=== PATIENT | female | born 1940 | race Caucasian/White ===

== ENCOUNTER 2017-07-05 09:55 | Day surgery (SDC) | payer MEDICARE, OTHER ==
[~2017-07-05] VITALS: Ht 149.9 cm; Wt 53.4 kg
[~2017-07-05 09:55] MED LIST: ALBU90OI6; ALBU90OI6 INH; AMLO10; ASPI81CH; Advair Hfa 230-12 GM INH; BENA20 PO; BENZ100A PO; BISA10S PR; BYSTOLIC PO; CHOL10002 PO; CIPR500 PO; CLON.5; CODGUAEL PO; CYAN1000I PO; CYCL10 PO; DOCU100 PO; FEXO180 PO; FLUSAL2505 IH; Flomax0.4 MG PO; HYDACE10; HYDACE10 PO; HYDACE10B PO; Hydrocodone-Ap1 EA20 PO; IBUP600 PO; IBUP800 PO; IPRAOI INH; LEVO750 PO; MECL25 PO; METH5; METO100ER; METO50ER PO; MILN100T PO; MIRT15; MONT10T PO; Micro-K10 MEQ PO; Norco 5-325 Ta1 EACH PO; OMEP20ER PO; OMEPRAZOLE MAGN20 MG PO; OXYACE5T PO; OXYC1TAB11 PO; PARO20; PIRO20; PREG75 PO; RALO60; SERT100 PO; SERT50; TIOT18 IH; VERAMYST; Zofran Odt4 MG PO
[2018-05-18] MEDS ORDERED: Vitamin B Comple1 EA PO (14:02)
[2018-05-18] MEDS ORDERED: Norco 10-325 T1 EACH PO (14:03)
[2018-05-21] MEDS ORDERED: GUAI600T33 PO (12:55)
[2018-05-21] MEDS ORDERED: CEFD300 PO (12:59)
[2018-05-21] MEDS ORDERED: ALBU3IS INH (12:59)
== END 2017-07-05 13:20 | disposition home or self-care (01) ==
LOC: ORSCSDS 09:55
DX: N20.1 Calculus of ureter (principal); I10 Essential (primary) hypertension; I48.0 Paroxysmal atrial fibrillation; G47.33 Obstructive sleep apnea (adult) (pediatric); K21.9 Gastro-esophageal reflux disease without esophagitis; F32.9 Major depressive disorder, single episode, unspecified; Z79.899 Other long term (current) drug therapy
CPT/HCPCS: C1769; C1889; C1894; C2617; J0744; J1100; J1885; J2250; J2405; J3010; J7120

== ENCOUNTER → 2017-08-28 | Outpatient (CLI) | payer MEDICARE, OTHER ==
[~2017-08-28] MED LIST changes: +ALBU3IS INH; +CEFD300 PO; +GUAI600T33 PO; +Norco 10-325 T1 EACH PO; +Vitamin B Comple1 EA PO
[2017-08-31 10:52] LABS: Stool Occult Bld Immuno 1 Negative (NEGATIVE)
== END | disposition home or self-care (01) ==
LOC: LAB EV 21:00
PROVIDERS: Family Medicine
DX: D64.9 Anemia, unspecified (principal); E83.52 Hypercalcemia
CPT/HCPCS: 82274

== ENCOUNTER → 2017-12-24 | Outpatient (CLI) | payer MEDICARE, OTHER ==
[~2017-12-24] MED LIST changes: -ALBU3IS INH; -CEFD300 PO; -GUAI600T33 PO; -Norco 10-325 T1 EACH PO; -Vitamin B Comple1 EA PO
[2017-12-25 14:27] LABS: Calcium, Urine 14.3 mg/dL (2.0-17.5); Calcium, Urine Calculation 71.5 mg/24hrs (42.0-353.0)
== END ==
LOC: LAB EV 09:46
PROVIDERS: Internal Medicine Endocrinology, Diabetes & Metabolism
DX: E21.0 Primary hyperparathyroidism (principal); E55.9 Vitamin D deficiency, unspecified; Z87.442 Personal history of urinary calculi
CPT/HCPCS: 81050; 82340; 82570

== ENCOUNTER 2019-08-13 18:25 | Emergency (ER) | payer MEDICARE, OTHER ==
[~2019-08-13] VITALS: Ht 144.8 cm; Wt 55.3 kg
[~2019-08-13 18:25] MED LIST changes: +ALBU3IS INH; +CEFD300 PO; +GUAI600T33 PO; +Norco 10-325 T1 EACH PO; +Vitamin B Comple1 EA PO
[2019-08-13] MEDS ORDERED: Norco 10-325 T1 EACH PO (18:52)
== END 2019-08-13 20:37 | disposition home or self-care (01) ==
LOC: ER 18:25
DX: M54.5 Low back pain (principal); G89.29 Other chronic pain; M79.7 Fibromyalgia; Z79.899 Other long term (current) drug therapy
CPT/HCPCS: 72100; 96374; 99283-25; A9270; J1170

== ENCOUNTER → 2020-01-01 | Outpatient (CLI) | payer MEDICARE, OTHER ==
[2020-01-01 18:14] LABS: Calcium, Urine 12.5 mg/dL (< 17.5)
[2020-01-01 18:53] LABS: Creatinine Urine 61.4 mg/dL (27.00-270.00)
== END | disposition home or self-care (01) ==
LOC: LAB SHORT 16:11 → LAB 16:11 → LAB FUT 11-19 11:20
PROVIDERS: Internal Medicine
DX: M81.0 Age-related osteoporosis without current pathological fracture (principal)
CPT/HCPCS: 81050; 82340; 82570

== ENCOUNTER → 2020-02-24 | Outpatient (CLI) | payer MEDICARE, OTHER | END | disposition home or self-care (01) | LOC: LAB EV 17:04 → LAB SHORT 17:04 | DX: N39.0 Urinary tract infection, site not specified (principal) | CPT/HCPCS: 87077; 87086; 87186 ==

== ENCOUNTER → 2020-03-22 | Outpatient (CLI) | payer MEDICARE, OTHER | END | disposition home or self-care (01) | LOC: LAB EV 18:22 → LAB SHORT 18:22 | DX: R30.0 Dysuria (principal) | CPT/HCPCS: 87077; 87086; 87186 ==

== ENCOUNTER → 2020-11-12 | Outpatient (CLI) | payer MEDICARE, OTHER ==
[2020-11-13 07:42] LABS: Stool Occult Bld Immuno 1 Negative (NEGATIVE)
== END | disposition home or self-care (01) ==
LOC: LAB SHORT 14:55 → LAB 14:55
PROVIDERS: Family Medicine
DX: D64.9 Anemia, unspecified (principal)
CPT/HCPCS: 82274

== ENCOUNTER → 2020-12-09 | Outpatient (CLI) | payer MEDICARE, OTHER | LOC: LAB SHORT 18:06 → LAB 18:06 | DX: N39.0 Urinary tract infection, site not specified (principal) | CPT/HCPCS: 87077; 87086; 87186 ==

== ENCOUNTER → 2021-05-04 | Outpatient (CLI) | payer MEDICARE, OTHER ==
[~2021-05-04] MED LIST changes: +KETO10 PO
== END ==
LOC: LAB 15:57 → LAB SHORT 15:57
DX: R31.0 Gross hematuria (principal)
CPT/HCPCS: 87086

== ENCOUNTER → 2023-03-30 | Outpatient (CLI) | payer MEDICARE, OTHER | END | disposition home or self-care (01) | LOC: LAB 16:57 → LAB SHORT 16:57 | DX: N39.0 Urinary tract infection, site not specified (principal) | CPT/HCPCS: 87077; 87086; 87186 ==

== ENCOUNTER → 2023-06-11 | Outpatient (CLI) | payer MEDICARE, OTHER ==
[~2023-06-11] MED LIST changes: +ALBU90OI INH; +FERRO-TIME325 MG PO; +MIRT15 PO; +ONDA4ODT MM; +SULTRIDS PO; +[UNRECOGNIZED DRUG - OTHER] PO
== END ==
LOC: LAB SHORT 12:54 → LAB 12:54
DX: N39.0 Urinary tract infection, site not specified (principal)
CPT/HCPCS: 87077; 87086; 87186

== ENCOUNTER 2023-06-12 13:54 | Inpatient (IN) | payer MEDICARE, OTHER ==
[~2023-06-12] VITALS: Ht 157.5 cm; Wt 46.0 kg
[~2023-06-12 13:54] MED LIST changes: -ALBU90OI INH; -FERRO-TIME325 MG PO; -MIRT15 PO; -ONDA4ODT MM; -SULTRIDS PO; -[UNRECOGNIZED DRUG - OTHER] PO
[2023-06-12] MEDS ORDERED: CEFD300 PO (14:27)
[2023-06-12 14:41] VITALS: BP 131/68
[2023-06-12] MEDS ORDERED: FERRO-TIME325 MG PO (14:59)
[2023-06-12] MEDS ORDERED: ONDA4ODT MM (15:00)
--- NOTE | 2023-06-12 15:07 | NUR ---
1430- PT IS A DIRECT ADMIT FROM [facility], DELIVERED TO ROOM 304 VIA WHEELCHAIR, PT APPEARS VERY WEAK AND SLEEPY, ANSWERS QUESTIONS APPROPRIATELY, A/O X3. DAUGHTER ACCOMPANYING PT AND ABLE TO ANSWER HISTORY QUESTIONS. CALLED DR BRADFORD TO NOTIFY PT IS HERE. PT/FAMILY ORIENTED TO ROOM SET UP, CALL LIGHT AND SAFETY.
--- NOTE | 2023-06-12 17:33 | NUR ---
SUMMARY- PT SOMNOLENT, AWAKENS TO VERBAL STIM. ANSWERS QUESTIONS APPROPRIATELY, JUST FEELS WEAK AND TIRED. MEDICATED ONCE WITH NORCO 10MG (1/2 TAB) FOR C/O PAIN IN LOWER BACK 04/03. EFFECTIVE RELEIF AEB PT SLEEPING. STARTED IVF. PT INCONT OF URINE, WILL OBTAIN ORDER FOR ST CATH TO OBTAIN SAMPLE. PT TOLERATING SIPS OF CLEARS, DECLINED DINNER. WILL SAVE FOR LATER. WILL REPORT TO JACOBY MACKENZIE.
[2023-06-12 19:22] VITALS: BP 127/58
[2023-06-12 20:16] LABS: Source, Urine Clean Catch
[2023-06-12 20:21] LABS: Appearance, Urine Cloudy (Clear); Bilirubin, Urine Neg (Neg); Blood, Urine 5+ (Neg); Color, Urine Yellow (P-Yellow); Glucose Qualitative, Urine Neg (Neg); Ketones, Urine 3+ (Neg); Leukocyte Esterase, Urine 3+ (Neg); Nitrite, Urine Neg (Neg); Protein, Urine 3+ (Neg); Urobilinogen, Urine NORM (Normal)
[2023-06-12 20:36] LABS: Amorphous Mod (0-Heavy); Bacteria Many /hpf; Red Blood Cells, Urine 25-50 /hpf (0-2); Squamous Epithelial Cells Not Seen /hpf (Few); White Blood Cells, Urine TNTC /hpf (0-5)
[2023-06-13 04:59] VITALS: BP 141/63
[2023-06-13 05:15] LABS: Hematocrit 27.8 % (33.0-51.0); Hemoglobin 8.8 g/dL (11.5-16.0); Mean Corpuscular HGB 32.7 pg (26.0-34.0); Mean Corpuscular HGB Conc 31.7 g/dL (31.5-36.5); Mean Corpuscular Volume 103 fL (80-100); Mean Platelet Volume 11.2 fL (9.1-12.4); Platelet Count 341 K/mm3 (150-400); RDW Standard Deviation 72.7 fL (35.1-46.3); Red Blood Cell Count 2.69 M/mm3 (3.80-5.20); White Blood Cell Count 11.05 K/mm3 (4.00-11.30)
[2023-06-13 05:39] LABS: Albumin, Blood 2.4 g/dL (3.4-5.0); Albumin/Globulin Ratio 0.6 (0.8-1.8); Bilirubin, Total 0.4 mg/dL (0.1-1.0); Calcium, Blood 9.9 mg/dL (8.5-10.1); Creatinine, Blood 0.64 mg/dL (0.40-1.00); Globulin, Blood 3.8 g/dL (2.2-4.0); Percent Saturation 31.7 % (15.0-50.0); Potassium, Blood 4.1 mmol/L (3.5-5.5); Total Protein, Blood 6.2 g/dL (6.4-8.2)
--- NOTE | 2023-06-13 05:50 | NUR ---
REPORT RECEIVED VERIFIED, PT A/O HAS OVER ALL SICK FEELING AND IS VERY UNCOMFORTABLE. I REPOSITIONED SEVERL TIMES UNTIL PT FELL ASLEEP. PT SLEPT VERY WELL WITH PURWIC IN PLACE. REPOSITIONED SEVERAL TIMES AND AROUND 5AM GAVE SOME EPAIN MEDICATION. PT SEEMS BETTER AND JUST WANTS TO SLEEP. I SPOKE AND DAUGHTER AND GAVE BRIEF UPDATE, FAMILY TO COME LATER
[2023-06-13 06:07] LABS: BAND PERCENT MAN 3 % (0-8); BASOPHILS PERCENT MAN 0 % (0-2); EOSINOPHILS PERCENT MAN 0 % (0-6); LYMPHOCYTES % ATYPICAL MANUAL 2 % (0-0); LYMPHOCYTES ABSOLUTE MAN 1.87 K/mm3 (0.84-5.20); LYMPHOCYTES PERCENT MAN 15 % (21-46); MONOCYTES ABSOLUTE MAN 0.55 K/mm3 (0.16-1.47); MONOCYTES PERCENT MAN 5 % (4-13); MYELOCYTE ABSOLUTE MAN 0.22 K/mm3 (0.00-0.00); MYELOCYTE PERCENT MAN 2 % (0-0); NEUTROPHILS ABSOLUTE MAN 8.39 K/mm3 (1.96-9.15); SEG NEUTROPHILS PERCENT MAN 73 % (41-73); TOTAL CELLS COUNTED 100
[2023-06-13 07:45] VITALS: BP 126/64
[2023-06-13 15:46] VITALS: BP 133/64
--- NOTE | 2023-06-13 17:28 | NUR ---
SHIFT SUMMARY PATIENT RESTING MOST OF THE DAY. AROUSES WHEN STIMULATED AND ABLE TO EXPRESS NEEDS. PATIENT WEAK. EASILY DRIFTING BACK TO SLEEP WHEN NOT STIMULATED. PATIENT COMPLAINING OF CHRONIC BACK AND NECK PAIN. PATIENT MEDICATED WITH NORCO X1. PATIENT HAS POOR APPETITE BUT DRANK ONE ENSURE AND ATE SOME PUDDING. LUNGS DECREASED T/O. PATIENT HAS HACKING COUGH AT TIMES WHEN AWAKE THAT IS INCONSISTANT WITH EATING AND DRINKING. BED BATH GIVEN. IRON INFUSION DONE.
[2023-06-13 19:35] VITALS: BP 141/72
--- NOTE | 2023-06-13 22:16 | NUR ---
PT A&OX3-4 , C/O CHRONIC BACK PAIN"SEVERE" REEPOSISTIONED & MEDICATED PER EMAR, LUNGS ARE DIIMNISHED T/O WITH AUDIBLE WHEEZE W/ EXERTION ON 2LNC PROVIDER ORDERED NEB TX PRN, PT SWALLOW IMPAIRED PILLS CRUSHED IN PUDDING PT STRUGGLED AND CHOKED, THIN LIQUIDS OR APPLESAUCE CONSISTENCY WORKS BEST, PT REPORTS STRUGGLING TO EAT R/T IMPAIRED SWALLOW AND APPETITE. BOWEL SOUNDS ARE HYPOACTIVE, INCONITNENT IN ATTEND W/ PURE WIC IN PLACE. HEAD OF BED ELEVATED CALL [place] WITHIN REACH BED LOWERED. WILL CONTINUE TO MONITOR. PT CALLING OUT "HELP" REPORTS PAIN IN LOWER BACK REPOSITIONED STATES SOME RELIEF.
[2023-06-14 03:00] VITALS: BP 140/65
--- NOTE | 2023-06-14 05:15 | NUR ---
SHIFT SUMMARY NOC PT A/O TO X 1-2. CONFUSED BUT COOPERATIVE WITH CARE. PT SWALLOW REFLEX IS IMPAIRED, PT UNABLE TO TAKE PO RX SAFELY, PT MADE NPO AND HAS INFUSION OF NS @ 75 ML/HR. HOSPITALIST GAVE INSTRUCTIONS TO PASS ALONG TO DAY PROVIDER NEED FOR ST EVALUATION. PT ALSO HAS HAD DRY COUGH AND GUAFESON SYRUP AND ALBUTEROL TREATMENTS ORDERED. PT ON O2 2L/NC SPO2 > 92%. PT HGB 8.8, PT RECEIVING DAILY FERRLECIT IV. PT ON CONTACT ISOLATION FOR ESBL I PT DAUGHTER CALLED FOR UPDATE ON PT, AND TO LET NURSING STAFF KNOW THAT SHE WILL BE IN AROUND 1400 TODAY, WILL PASS TO DAY RN. PT IS CURRENTLY RESTING WITH BED IN LOWEST POSITION, AND CALL LIGHT WITHIN REACH.
[2023-06-14 07:32] VITALS: BP 154/68
[2023-06-14 15:08] VITALS: BP 140/68
[2023-06-14 17:36] LABS: BASOPHILS ABSOLUTE AUTO 0.03 K/mm3 (0.00-0.23); BASOPHILS PERCENT AUTO 0 % (0-2); EOSINOPHILS ABSOLUTE AUTO 0.02 K/mm3 (0.00-0.68); EOSINOPHILS PERCENT AUTO 0 % (0-6); Hematocrit 31.2 % (33.0-51.0); Hemoglobin 10.3 g/dL (11.5-16.0); IMMATURE GRAN ABSOLUTE AUTO 0.11 K/mm3 (0.00-0.10); IMMATURE GRAN PERCENT AUTO 1 % (0-1); LYMPHOCYTES ABSOLUTE AUTO 1.31 K/mm3 (0.84-5.20); LYMPHOCYTES PERCENT AUTO 12 % (21-46); MONOCYTES ABSOLUTE AUTO 0.62 K/mm3 (0.16-1.47); MONOCYTES PERCENT AUTO 6 % (4-13); Mean Corpuscular HGB 32.6 pg (26.0-34.0); Mean Corpuscular Volume 99 fL (80-100); Mean Platelet Volume 10.5 fL (9.1-12.4); NEUTROPHILS ABSOLUTE AUTO 9.13 K/mm3 (1.96-9.15); NEUTROPHILS PERCENT AUTO 81 % (41-73); NRBC ABSOLUTE 0.05 K/mm3 (0.00-0.02); NRBC Auto 0.4 /100 WBC (0.0-0.2); Platelet Count 366 K/mm3 (150-400); RDW Coefficient Variation 18.2 % (11.7-14.2); RDW Standard Deviation 66.3 fL (35.1-46.3); Red Blood Cell Count 3.16 M/mm3 (3.80-5.20); White Blood Cell Count 11.22 K/mm3 (4.00-11.30)
--- NOTE | 2023-06-14 18:40 | NUR ---
SHIFT SUMMARY PATIENT LETHARGIC AND RESTING MOST OF SHIFT. PATIENT AROUSES WHEN STIMULATED. PATIENT CONTINUES TO HAVE CHRONIC PAIN. MEDICATED WITH PAIN MEDS WHEN PATIENT MORE AWAKE. PATIENT TOLERATED MECHANICAL SOFT DIET WITH ASSISTANCE AND SUPERVISION WITH EATING AND DRINKING. FAMILY IN AND OUT. FAMILY WILLING TO ASSIST WITH FEEDINGS TO BE SURE PATIENT EATS SAFELY.
[2023-06-14 19:15] VITALS: BP 132/91
[2023-06-14 20:16] LABS: Albumin, Blood 2.3 g/dL (3.4-5.0); Albumin/Globulin Ratio 0.5 (0.8-1.8); Bilirubin, Total 0.5 mg/dL (0.1-1.0); Bun/Creatinine Ratio 19.5 (12.0-20.0); Calcium, Blood 9.2 mg/dL (8.5-10.1); Creatinine, Blood 0.56 mg/dL (0.40-1.00); Globulin, Blood 4.3 g/dL (2.2-4.0); Potassium, Blood 3.6 mmol/L (3.5-5.5); Total Protein, Blood 6.6 g/dL (6.4-8.2)
[2023-06-15 03:41] VITALS: BP 147/65
--- NOTE | 2023-06-15 05:12 | NUR ---
SHIFT SUMMARY NOC PT A/O X 2. CONFUSED AT TIMES. EXTREMELY LETHARGIC AFTER RECEIVNG NOROC FOR PAIN, BEDTIME RX HELD DUE TO HIGH ASPIRATION RISK. PT NOW TAKING MERREM/VANCOMYCIN FOR UTI/PNA. NEW ORDER FOR LR @ 150 ML/HR INFUSING. PT ON O2 2L/NC. HAS PUREWICK IN PLACE. PT HAS SLEPT MAJORITY OF SHIFT. PT ATTEMPTED BM ON BEDPAN, BUT ONLY URINE PRODUCED. PT DAUGHTER TRINI IS POA AND WANTS TO BE NOTIFIED OF ANY ACUTE CHANGES IN PT CONDITION (NUMBER ON WHITE BOARD). PT IS CURRENTLY RESTING WITH BED IN LOWEST POSITION, AND CALL LIGHT WITHIN REACH.
[2023-06-15 07:38] VITALS: BP 146/76
[2023-06-15 15:16] VITALS: BP 131/75
[2023-06-15 17:39] LABS: BASOPHILS ABSOLUTE AUTO 0.04 K/mm3 (0.00-0.23); BASOPHILS PERCENT AUTO 0 % (0-2); EOSINOPHILS ABSOLUTE AUTO 0.05 K/mm3 (0.00-0.68); EOSINOPHILS PERCENT AUTO 0 % (0-6); Hematocrit 33.9 % (33.0-51.0); IMMATURE GRAN ABSOLUTE AUTO 0.13 K/mm3 (0.00-0.10); IMMATURE GRAN PERCENT AUTO 1 % (0-1); LYMPHOCYTES ABSOLUTE AUTO 2.83 K/mm3 (0.84-5.20); LYMPHOCYTES PERCENT AUTO 18 % (21-46); MONOCYTES ABSOLUTE AUTO 0.86 K/mm3 (0.16-1.47); MONOCYTES PERCENT AUTO 6 % (4-13); Mean Corpuscular HGB 32.6 pg (26.0-34.0); Mean Corpuscular HGB Conc 32.4 g/dL (31.5-36.5); Mean Corpuscular Volume 101 fL (80-100); Mean Platelet Volume 9.9 fL (9.1-12.4); NEUTROPHILS ABSOLUTE AUTO 11.83 K/mm3 (1.96-9.15); NEUTROPHILS PERCENT AUTO 75 % (41-73); NRBC ABSOLUTE 0.05 K/mm3 (0.00-0.02); NRBC Auto 0.3 /100 WBC (0.0-0.2); Platelet Count 384 K/mm3 (150-400); RDW Coefficient Variation 18.6 % (11.7-14.2); RDW Standard Deviation 68.5 fL (35.1-46.3); Red Blood Cell Count 3.37 M/mm3 (3.80-5.20); White Blood Cell Count 15.74 K/mm3 (4.00-11.30)
[2023-06-15 18:02] LABS: Albumin, Blood 2.5 g/dL (3.4-5.0); Albumin/Globulin Ratio 0.5 (0.8-1.8); Bilirubin, Total 0.6 mg/dL (0.1-1.0); Bun/Creatinine Ratio 19.1 (12.0-20.0); Calcium, Blood 9.7 mg/dL (8.5-10.1); Creatinine, Blood 0.58 mg/dL (0.40-1.00); Globulin, Blood 4.6 g/dL (2.2-4.0); Total Protein, Blood 7.1 g/dL (6.4-8.2)
--- NOTE | 2023-06-15 18:30 | NUR ---
SHIFT SUMMARY PATIENT RESTING MOST OF THE DAY. AROUSES EASILY AND INTERACTIVE ESPECIALLY WHEN FAMILY PRESENT. PATIENT HAS CHRONIC BACK PAIN AND TAKES NARCOTICS REGULARLY AT HOME. FAMILY IN TO HELP PATIENT WITH EATING MEALS EACH MEAL TODAY. IF PATIENT NOT INTERESTED IN EATING HER MEAL, PATIENT WOULD DRINK AN ENSURE. PATIENT MEDICATED X2. PATIENT UP TO CHAIR WITH MINIMAL ASSIST TODAY. PATIETN AMBULATED TO BR X1 WITH WALKER AND STAND BY ASSIST ONCE UP.
[2023-06-15 20:19] VITALS: BP 111/58
--- NOTE | 2023-06-15 21:25 | NUR ---
PT REPOSITIONED IN BED AFTER TRYING TO HAVE A BM ON BSC. NO BM. PT IS A 1-2PA. PT IS RESTIING COMFORTABLY ON RIGHT SIDE. PILLOW BEHIND BACK AND BETWEEN LEGS. HEATING PAD AGAINST BACK. NO OTHER NEEDS. CALL LT IN REACH.
--- NOTE | 2023-06-16 04:00 | NUR ---
SHIFT SUMMARY: PT RESTED WELL T/O SHIFT. REPOSITIONED PT FOR COMFORT. PT WAS ABLE TO MOVE SELF IN BED INDEPENDENTLY. ON 2L VIA NC. PT UP TO THE BSC WITH 2PA. NO BM. TOOK MEDS WELL WITH APPLESAUCE WITHOUT COUGHING OR CHOKING. HEATING PAD FOR CHRONIC BACK PAIN. PURWICK IN PLACE, YELLOW URINE. LR INFUSING AT 150 MLS/HR. NO ACUTE CHANGES. WILL CONTINUE TO PROVIDE CARE T/O SHIFT UNTIL ONCOMING NURSE.
[2023-06-16 07:10] LABS: BASOPHILS ABSOLUTE AUTO 0.04 K/mm3 (0.00-0.23); BASOPHILS PERCENT AUTO 0 % (0-2); EOSINOPHILS ABSOLUTE AUTO 0.09 K/mm3 (0.00-0.68); EOSINOPHILS PERCENT AUTO 1 % (0-6); Hematocrit 31.7 % (33.0-51.0); Hemoglobin 10.3 g/dL (11.5-16.0); IMMATURE GRAN ABSOLUTE AUTO 0.09 K/mm3 (0.00-0.10); IMMATURE GRAN PERCENT AUTO 1 % (0-1); LYMPHOCYTES ABSOLUTE AUTO 1.81 K/mm3 (0.84-5.20); LYMPHOCYTES PERCENT AUTO 18 % (21-46); MONOCYTES ABSOLUTE AUTO 0.55 K/mm3 (0.16-1.47); MONOCYTES PERCENT AUTO 5 % (4-13); Mean Corpuscular HGB 32.8 pg (26.0-34.0); Mean Corpuscular HGB Conc 32.5 g/dL (31.5-36.5); Mean Corpuscular Volume 101 fL (80-100); Mean Platelet Volume 10.3 fL (9.1-12.4); NEUTROPHILS ABSOLUTE AUTO 7.73 K/mm3 (1.96-9.15); NEUTROPHILS PERCENT AUTO 75 % (41-73); NRBC ABSOLUTE 0.02 K/mm3 (0.00-0.02); NRBC Auto 0.2 /100 WBC (0.0-0.2); Platelet Count 303 K/mm3 (150-400); RDW Coefficient Variation 18.5 % (11.7-14.2); RDW Standard Deviation 69.1 fL (35.1-46.3); Red Blood Cell Count 3.14 M/mm3 (3.80-5.20); White Blood Cell Count 10.31 K/mm3 (4.00-11.30)
[2023-06-16 07:24] LABS: Albumin, Blood 2.4 g/dL (3.4-5.0); Albumin/Globulin Ratio 0.6 (0.8-1.8); Bilirubin, Total 0.4 mg/dL (0.1-1.0); Bun/Creatinine Ratio 15.3 (12.0-20.0); Calcium, Blood 9.8 mg/dL (8.5-10.1); Creatinine, Blood 0.59 mg/dL (0.40-1.00); Globulin, Blood 4.3 g/dL (2.2-4.0); Total Protein, Blood 6.7 g/dL (6.4-8.2)
[2023-06-16 07:31] VITALS: BP 126/64
[2023-06-16 16:23] VITALS: BP 121/66
[2023-06-16 17:05] LABS: BASOPHILS ABSOLUTE AUTO 0.03 K/mm3 (0.00-0.23); BASOPHILS PERCENT AUTO 0 % (0-2); EOSINOPHILS ABSOLUTE AUTO 0.05 K/mm3 (0.00-0.68); EOSINOPHILS PERCENT AUTO 1 % (0-6); Hematocrit 30.7 % (33.0-51.0); Hemoglobin 9.9 g/dL (11.5-16.0); IMMATURE GRAN ABSOLUTE AUTO 0.07 K/mm3 (0.00-0.10); IMMATURE GRAN PERCENT AUTO 1 % (0-1); LYMPHOCYTES ABSOLUTE AUTO 1.81 K/mm3 (0.84-5.20); LYMPHOCYTES PERCENT AUTO 17 % (21-46); MONOCYTES ABSOLUTE AUTO 0.58 K/mm3 (0.16-1.47); MONOCYTES PERCENT AUTO 6 % (4-13); Mean Corpuscular HGB 32.4 pg (26.0-34.0); Mean Corpuscular HGB Conc 32.2 g/dL (31.5-36.5); Mean Corpuscular Volume 100 fL (80-100); Mean Platelet Volume 10.5 fL (9.1-12.4); NEUTROPHILS ABSOLUTE AUTO 8.07 K/mm3 (1.96-9.15); NEUTROPHILS PERCENT AUTO 76 % (41-73); Platelet Count 283 K/mm3 (150-400); RDW Coefficient Variation 18.7 % (11.7-14.2); RDW Standard Deviation 70.1 fL (35.1-46.3); Red Blood Cell Count 3.06 M/mm3 (3.80-5.20); White Blood Cell Count 10.61 K/mm3 (4.00-11.30)
[2023-06-16 17:18] LABS: Albumin, Blood 2.4 g/dL (3.4-5.0); Albumin/Globulin Ratio 0.6 (0.8-1.8); Bilirubin, Total 0.4 mg/dL (0.1-1.0); Bun/Creatinine Ratio 14.2 (12.0-20.0); Calcium, Blood 9.8 mg/dL (8.5-10.1); Creatinine, Blood 0.64 mg/dL (0.40-1.00); Globulin, Blood 4.1 g/dL (2.2-4.0); Potassium, Blood 4.4 mmol/L (3.5-5.5); Total Protein, Blood 6.5 g/dL (6.4-8.2)
[2023-06-16 19:55] VITALS: BP 121/67
[2023-06-16 20:46] VITALS: BP 124/71
[2023-06-17 04:59] VITALS: BP 114/59
[2023-06-17 06:04] LABS: BASOPHILS ABSOLUTE AUTO 0.04 K/mm3 (0.00-0.23); BASOPHILS PERCENT AUTO 1 % (0-2); EOSINOPHILS ABSOLUTE AUTO 0.13 K/mm3 (0.00-0.68); EOSINOPHILS PERCENT AUTO 2 % (0-6); Hematocrit 25.8 % (33.0-51.0); Hemoglobin 8.5 g/dL (11.5-16.0); IMMATURE GRAN ABSOLUTE AUTO 0.08 K/mm3 (0.00-0.10); IMMATURE GRAN PERCENT AUTO 1 % (0-1); LYMPHOCYTES ABSOLUTE AUTO 2.49 K/mm3 (0.84-5.20); LYMPHOCYTES PERCENT AUTO 29 % (21-46); MONOCYTES ABSOLUTE AUTO 0.58 K/mm3 (0.16-1.47); MONOCYTES PERCENT AUTO 7 % (4-13); Mean Corpuscular HGB 32.9 pg (26.0-34.0); Mean Corpuscular HGB Conc 32.9 g/dL (31.5-36.5); Mean Corpuscular Volume 100 fL (80-100); Mean Platelet Volume 10.2 fL (9.1-12.4); NEUTROPHILS ABSOLUTE AUTO 5.16 K/mm3 (1.96-9.15); NEUTROPHILS PERCENT AUTO 61 % (41-73); Platelet Count 312 K/mm3 (150-400); RDW Coefficient Variation 18.9 % (11.7-14.2); RDW Standard Deviation 68.5 fL (35.1-46.3); Red Blood Cell Count 2.58 M/mm3 (3.80-5.20); White Blood Cell Count 8.48 K/mm3 (4.00-11.30)
[2023-06-17 06:27] LABS: Albumin, Blood 2.1 g/dL (3.4-5.0); Albumin/Globulin Ratio 0.6 (0.8-1.8); Bilirubin, Total 0.5 mg/dL (0.1-1.0); Bun/Creatinine Ratio 11.9 (12.0-20.0); Calcium, Blood 9.4 mg/dL (8.5-10.1); Creatinine, Blood 0.76 mg/dL (0.40-1.00); Globulin, Blood 3.8 g/dL (2.2-4.0); Total Protein, Blood 5.9 g/dL (6.4-8.2)
--- NOTE | 2023-06-17 06:44 | NUR ---
SHIFT SUMMARY NOC PT A/O X 3. PLEASANT AND COOPERATIVE WITH CARE. PT HR HAS BEEN IN 110'S AND RR 22. HOSPITALIST NOTIFIED OF POSSIBLE SEPSIS REOCCURANCE, NO ORDERS GIVEN, AWAITING AM VSS AND LABS. PT ON 2.5L/NC SPO2 DID DROP TO 88-89% FOR A MINUTE AND O2 TITRATED UP 0.5LPM. PUREWICK IN PLACE. PT CHRONIC BACK PAIN BEING MANAGED PER EMAR. PT IS CURRENTLY RESTING WITH BED IN LOWEST POSITION, AND CALL LIGHT WITHIN REACH.
[2023-06-17 08:01] VITALS: BP 134/61
[2023-06-17] MEDS ORDERED: ALBU90OI INH (12:44)
[2023-06-17] MEDS ORDERED: [UNRECOGNIZED DRUG - OTHER] PO (12:54)
[2023-06-17] MEDS ORDERED: SULTRIDS PO (12:56)
[2023-06-17] MEDS ORDERED: MIRT15 PO (12:56)
--- NOTE | 2023-06-17 13:26 | NUR ---
REPORT TO [facility] ATTEMPTED TO CALL REPORT TO [facility]. [id number], 1300, [id number],[id number]. ALL ATTEMPTS WERE MET WITH A BUST SIGNAL. NO OPPURTUNITY TO LEAVE A MESSAGE. CARE ONGOING.
--- NOTE | 2023-06-17 14:07 | NUR ---
DISCHARGE [facility] UNABLE TO REACH STAFF AT [facility]. PT TRANSPORTED VIA [facility] TO [facility] RM 24 BED 2. IV REMOVED PRESSURE DRESSING APPLIED X2. ATTENDS ON. CARE ON GOING.
== END 2023-06-17 13:59 | DRG 871 ==
LOC: MEDS 13:54
PROVIDERS: Family Medicine; Internal Medicine; ADMIT Internal Medicine
PROC: 5A09357 Assistance with Respiratory Ventilation, Less than 24 Consecutive Hours, Continuous Positive Airway Pressure (ICD-10-PCS; principal; 2023-06-12)
PROC: 3E03329 Introduction of Other Anti-infective into Peripheral Vein, Percutaneous Approach (ICD-10-PCS; 2023-06-12)
DX: A41.51 Sepsis due to Escherichia coli [E. coli] (principal); G93.41 Metabolic encephalopathy; N39.0 Urinary tract infection, site not specified; J98.11 Atelectasis; R54 Age-related physical debility; H81.10 Benign paroxysmal vertigo, unspecified ear; M81.0 Age-related osteoporosis without current pathological fracture; E78.2 Mixed hyperlipidemia; D50.0 Iron deficiency anemia secondary to blood loss (chronic); M40.299 Other kyphosis, site unspecified; J44.9 Chronic obstructive pulmonary disease, unspecified; K21.9 Gastro-esophageal reflux disease without esophagitis; G47.33 Obstructive sleep apnea (adult) (pediatric); M51.36 Other intervertebral disc degeneration, lumbar region; F32.A Depression, unspecified; I48.91 Unspecified atrial fibrillation; I10 Essential (primary) hypertension; F41.1 Generalized anxiety disorder; D75.9 Disease of blood and blood-forming organs, unspecified; G89.4 Chronic pain syndrome; Z87.81 Personal history of (healed) traumatic fracture; Z98.42 Cataract extraction status, left eye; Z98.41 Cataract extraction status, right eye; Z90.89 Acquired absence of other organs; Z98.890 Other specified postprocedural states; Z88.8 Allergy status to other drugs, medicaments and biological substances; Z79.891 Long term (current) use of opiate analgesic; Z79.899 Other long term (current) drug therapy
CPT/HCPCS: 36415; 71045; 80053; 81001; 82607; 82728; 82746; 82947; 83540; 83550; 83605; 83880; 84484; 85025; 87040; 87077; 87086; 87186; 94640; 94664; 94760; 94762; 97110; 97161; 97167; 97530; A9270; J0696; J1650; J2185; J2916; J3370; J7030; J7050; J7120

== ENCOUNTER → 2023-06-12 | Outpatient (CLI) | payer MEDICARE, OTHER ==
[2023-06-12 10:00] LABS: BASOPHILS ABSOLUTE AUTO 0.03 K/mm3 (0.00-0.23); BASOPHILS PERCENT AUTO 0 % (0-2); EOSINOPHILS ABSOLUTE AUTO 0.02 K/mm3 (0.00-0.68); EOSINOPHILS PERCENT AUTO 0 % (0-6); Hematocrit 29.8 % (33.0-51.0); Hemoglobin 9.6 g/dL (11.5-16.0); Mean Corpuscular HGB 33.2 pg (26.0-34.0); Mean Corpuscular HGB Conc 32.2 g/dL (31.5-36.5); Mean Corpuscular Volume 103 fL (80-100); Mean Platelet Volume 10.3 fL (9.1-12.4); Platelet Count 410 K/mm3 (150-400); RDW Coefficient Variation 18.5 % (11.7-14.2); RDW Standard Deviation 69.5 fL (35.1-46.3); Red Blood Cell Count 2.89 M/mm3 (3.80-5.20); White Blood Cell Count 14.61 K/mm3 (4.00-11.30)
[2023-06-12 10:13] LABS: Albumin, Blood 2.6 g/dL (3.4-5.0); Albumin/Globulin Ratio 0.7 (0.8-1.8); Bilirubin, Total 0.7 mg/dL (0.1-1.0); Calcium, Blood 10.9 mg/dL (8.5-10.1); Creatinine, Blood 0.96 mg/dL (0.40-1.00); Potassium, Blood 3.9 mmol/L (3.5-5.5); Total Protein, Blood 6.6 g/dL (6.4-8.2)
[2023-06-12 10:17] LABS: IMMATURE GRAN ABSOLUTE AUTO 0.12 K/mm3 (0.00-0.10); IMMATURE GRAN PERCENT AUTO 1 % (0-1); LYMPHOCYTES ABSOLUTE AUTO 1.45 K/mm3 (0.84-5.20); LYMPHOCYTES PERCENT AUTO 10 % (21-46); MONOCYTES ABSOLUTE AUTO 0.65 K/mm3 (0.16-1.47); MONOCYTES PERCENT AUTO 4 % (4-13); NEUTROPHILS ABSOLUTE AUTO 12.34 K/mm3 (1.96-9.15); NEUTROPHILS PERCENT AUTO 85 % (41-73)
== END | disposition home or self-care (01) ==
LOC: LAB SHORT 09:56 → LAB 09:56
PROVIDERS: Physician Assistant
DX: N39.0 Urinary tract infection, site not specified (principal)
CPT/HCPCS: 80053; 83605; 83880; 84484; 85025; 87040

== ENCOUNTER → 2024-10-01 | Outpatient (CLI) | payer MEDICARE, OTHER ==
[~2024-10-01] MED LIST changes: +ALBU90OI INH; +FERRO-TIME325 MG PO; +MIRT15 PO; +ONDA4ODT MM; +SULTRIDS PO; +[UNRECOGNIZED DRUG - OTHER] PO
== END ==
LOC: LAB SHORT 14:00 → LAB 14:00
DX: N39.0 Urinary tract infection, site not specified (principal)
CPT/HCPCS: 87077; 87086; 87186

== ENCOUNTER → 2024-10-17 | Outpatient (CLI) | payer MEDICARE, OTHER | LOC: LAB SHORT 13:00 → LAB 13:00 | DX: N39.0 Urinary tract infection, site not specified (principal) | CPT/HCPCS: 87077; 87086; 87186 ==